=== PATIENT | female | born 1990 | race Caucasian/White ===

== ENCOUNTER → 2019-09-18 14:49 | Outpatient (BNVA) | payer OTHER, MEDICAID, SELFPAY | PROVIDERS: PCP Family Medicine; Visit Provider Nurse Practitioner Women's Health | DX: Z01.89 Encounter for other specified special examinations (principal) | CPT/HCPCS: 84315 ==

== ENCOUNTER → 2019-10-02 11:17 | Outpatient (BNVA) | payer OTHER, MEDICAID, SELFPAY | PROVIDERS: PCP Family Medicine; Referring Provider Obstetrics & Gynecology; Visit Provider Obstetrics & Gynecology | DX: O09.891 Supervision of other high risk pregnancies, first trimester (principal); O30.001 Twin pregnancy, unspecified number of placenta and unspecified number of amniotic sacs, first trimester | CPT/HCPCS: 76801; 76802; 82950 ==

== ENCOUNTER → 2019-10-26 14:54 | Outpatient (BNVA) | payer OTHER, MEDICAID, SELFPAY | PROVIDERS: PCP Family Medicine; Visit Provider Obstetrics & Gynecology | DX: O09.891 Supervision of other high risk pregnancies, first trimester (principal) | CPT/HCPCS: 84315 ==

== ENCOUNTER → 2019-11-19 08:09 | Outpatient (BNVA) | payer OTHER, MEDICAID, SELFPAY | PROVIDERS: PCP Family Medicine; Visit Provider Obstetrics & Gynecology | DX: O30.042 Twin pregnancy, dichorionic/diamniotic, second trimester (principal) | CPT/HCPCS: 76805; 76810 ==

== ENCOUNTER 2019-12-23 09:46 | Outpatient (CLI) | payer OTHER, MEDICAID, SELFPAY ==
[2019-12-23 09:56] VITALS: BMI 38.2
[2019-12-23 10:02] VITALS: BP 122/64; PULSE 105
[2019-12-23 10:14] VITALS: RESP 17; TEMP 36.7
[2019-12-23 10:45] LABS: Add Urine Culture? No; Bacteria Urine TRACE; Bilirubin Urine Neg (NEGATIVE); Blood Urine Neg (Negative); Glucose Urine UA Norm (Normal); Ketones Urine Negative (Negative); Leukocyte Esterase Urine Negative (Negative); Nitrate Urine Negative (Negative); Protein Urine Neg (Negative); Specific Gravity, Urine 1.005 (1.005-1.030); Squamous Epithelial Cell Urine 15-25 (0-5); Urine Appearance Clear (CLEAR); Urine Color Straw (Yellow); Urobilinogen Urine Norm (Negative); WBC Urine 0-4 /hpf (0-5); pH Urine 7 (5-7)
== END 2019-12-23 11:00 | disposition home or self-care (01) ==
LOC: OPOB 09:52 → OBGYN 09:53
PROVIDERS: PCP Family Medicine; Visit Provider Obstetrics & Gynecology
DX: O36.8190 Decreased fetal movements, unspecified trimester, not applicable or unspecified (principal); Z3A.00 Weeks of gestation of pregnancy not specified
CPT/HCPCS: 59025; 81001; 99211

== ENCOUNTER → 2020-01-15 09:59 | Outpatient (BNVA) | payer OTHER, MEDICAID, SELFPAY | PROVIDERS: PCP Family Medicine; Visit Provider Obstetrics & Gynecology | DX: O09.892 Supervision of other high risk pregnancies, second trimester (principal); O30.009 Twin pregnancy, unspecified number of placenta and unspecified number of amniotic sacs, unspecified trimester | CPT/HCPCS: 82950; 84315; 85027 ==

== ENCOUNTER → 2020-02-15 11:20 | Outpatient (BNVA) | payer OTHER, MEDICAID, SELFPAY | PROVIDERS: PCP Family Medicine; Visit Provider Obstetrics & Gynecology | DX: O12.03 Gestational edema, third trimester (principal); N89.8 Other specified noninflammatory disorders of vagina; O42.90 Premature rupture of membranes, unspecified as to length of time between rupture and onset of labor, unspecified weeks of gestation | CPT/HCPCS: 81000; 83986 ==

== ENCOUNTER → 2020-02-26 15:05 | Outpatient (BNVA) | payer OTHER, MEDICAID, SELFPAY | PROVIDERS: PCP Family Medicine; Visit Provider Obstetrics & Gynecology | DX: Z34.90 Encounter for supervision of normal pregnancy, unspecified, unspecified trimester (principal) | CPT/HCPCS: 76819; 84315 ==

== ENCOUNTER → 2020-02-29 16:00 | Outpatient (BNVA) | payer OTHER, MEDICAID, SELFPAY | PROVIDERS: PCP Family Medicine; Visit Provider Obstetrics & Gynecology | DX: O09.893 Supervision of other high risk pregnancies, third trimester (principal) | CPT/HCPCS: 76819; 84315 ==

== ENCOUNTER → 2020-03-04 08:11 | Outpatient (BNVA) | payer OTHER, MEDICAID, SELFPAY | PROVIDERS: PCP Family Medicine; Visit Provider Obstetrics & Gynecology | DX: O30.043 Twin pregnancy, dichorionic/diamniotic, third trimester (principal); Z3A.36 36 weeks gestation of pregnancy | CPT/HCPCS: 76819 ==

== ENCOUNTER → 2020-03-10 08:00 | Outpatient (BNVA) | payer MEDICAID, SELFPAY | PROVIDERS: PCP Family Medicine; Visit Provider Obstetrics & Gynecology | DX: O30.043 Twin pregnancy, dichorionic/diamniotic, third trimester (principal); O09.893 Supervision of other high risk pregnancies, third trimester | CPT/HCPCS: 84315; 87081 ==

== ENCOUNTER 2020-03-17 15:42 | Outpatient (CLI) | payer MEDICAID, SELFPAY ==
[2020-03-19 18:03] LABS: Coronavirus Lab Test PTC Positive
== END 2020-03-17 15:43 | disposition home or self-care (01) ==
LOC: OPOB 15:42
PROVIDERS: PCP Family Medicine; Visit Provider Obstetrics & Gynecology
DX: Z11.59 Encounter for screening for other viral diseases (principal)
CPT/HCPCS: 84315; 87635; 99211

== ENCOUNTER 2020-03-18 18:08 | Inpatient (IN) | payer MEDICAID, SELFPAY ==
[2020-03-18 18:25] VITALS: BP 139/72; PULSE 79
--- NOTE | 2020-03-18 18:30 | PC.NURSE ---
Bedside ultrasound completed to verify position, baby A vertex and baby B transverse lie.
[2020-03-18 20:16] LABS: Basophils % 0.3 %; Eosinophils # 0.1 10^3/uL (0.0-0.8); Eosinophils % 0.7 %; Hematocrit 33.3 % (37.0-47.0); Lymphocytes # 2.1 10^3/uL (0.8-4.8); Lymphocytes % 19.2 %; Mean Corpuscular Hemoglobin 28.4 pg (28.0-34.0); Mean Platelet Volume 13.2 fL (7.4-10.4); Monocytes # 0.9 10^3/uL (0.2-0.9); Monocytes % 8.5 %; Neutrophils # 7.49 10^3/uL (1.8-7.7); Neutrophils % 69.8 %; Nucleated Red Blood Cells % 0 %; Platelet Count 144 10^3/cmm (130-400); Red Blood Count 3.87 10^6/uL (4.1-5.3); Red Cell Distribution Width 16.6 % (12.1-15.1); White Blood Count 10.7 10^3/uL (4.0-10.0)
[2020-03-18] MEDS: miSOPROStol 100 mcg tablet 25 MCG VAGINAL (20:25)
[2020-03-18 20:38] LABS: Slide Review Slide Review Perform
[2020-03-18 20:45] VITALS: TEMP 36.5
[2020-03-18] MEDS: lactated ringers 1,000 ML 999 ML IV (23:59)
[2020-03-19] VITALS (139 sets, daily range): BP systolic 0–147; BP diastolic 0–91; PULSE 56–98; RESP 16–18; TEMP 36.3–36.9; O2SAT 98–100
--- NOTE | 2020-03-19 00:56 | ANES.PREANE2 ---
Pre-Anesthetic Assessment Pre-Anesthetic Assessment: Height/Weight: Height 1.7 m Weight 273 g Temp Pulse BP 97.7 F 79 139/72 03/18/20 20:45 03/18/20 18:25 03/18/20 18:25 Preop Diagnosis: labor pain Proposed Procedure: epidural Was Beta Antoinette taken within 24 hours: N/A Social: Social History: No alcohol and No tobacco Exam: Pre-Anes Outpt Exam: alert, oriented x 3, clear to auscultation bilaterally and regular rate & rhythm Airway: Submandibular: WNL Cervical ROM: WNL MP: 2 Dentition: Full Pulmonary: Pulmonary: None reported CV/HEM: CV/HEM: None reported : : None reported Hepatic: Hepatic: None reported GI: GI: None reported Metabolic: Metabolic: None reported Musc/skel: Musc/skel: None reported Neuropsych: Neuropsych: None reported Anesthetic Plan: ASA status: 2 Anesthesia: Eval. for regional block Risk of > 500 ml blood loss (7ml/kg in children): No Meds/Allergies Current Medications: Current Medications Generic Name Dose Route Start Last Admin Trade Name Freq PRN Reason Stop Dose Admin Lactated Ringer's 1,000 mls @ 999 m ls/hr 03/18/20 19:09 03/18/20 23:59 Lactated Ringers IV 999 mls/hr .Q1H1M PRN Administration BLEEDING Misoprostol 25 mcg 03/18/20 19:15 03/18/20 20:25 Cytotec VAGINAL 03/19/20 03:16 25 mcg Q4H ANALILIA Administration PFSH Anesthesia PFSH: Medical History No pertinent past medical history neghx:htn,dm,thyroid,dvt/pe,herpes Surgical History No pertinent past surgical history Family History Grandfather Cancer Maternal grandfather-colon cancer Family/Other Cancer Maternal aunt-colon cancer Social History (Updated 03/18/20 @ 16:31 by Arsenio Crisostomo MD) Smoking and tobacco status: former smoker Quit status (tobacco): has quit using tobacco Year quit tobacco: 2011 Alcohol intake: never Other details last substance use: Denies drug use. Female Reproductive History: : 3 Data Anesthesia CBC & Chem 7: 03/18/20 18:30 Other Labs: Laboratory Results - last 48 hr 03/18/20 18:30 WBC 10.7 H RBC 3.87 L Hgb 11.0 L Hct 33.3 L MCV 86.0 MCH 28.4 MCHC 33.0 RDW 16.6 H Plt Count 144 MPV 13.2 H Neut % (Auto) 69.8 Lymph % (Auto) 19.2 [place] % (Auto) 8.5 Eos % (Auto) 0.7 Baso % (Auto) 0.3 Neut # (Auto) 7.49 Lymph # (Auto) 2.1 [place] # (Auto) 0.9 Eos # (Auto) 0.1 Baso # (Auto) 0.0 Nucleated RBC % (auto) 0 Nucleated RBCs # 0.0 Cardiac Studies: No Data to Display
--- NOTE | 2020-03-19 01:21 | ANES.PROC ---
Anesthesia Procedures Procedure/Date: 03/19/20 epidural Procedure Narrative: epidural complete, bolus given, epidural pump initiated with SOLID GLASS ROD DOWEL MACHINE OPERATOR education given, vitals taken during procedure using OBIX system and satisfactory throughout, patient admits to decrease pain, report of procedure to OB RN Epidural: Time Out Performed: Yes Consents Signed: Procedure Consent Consent: requested by attending/covering physician, from patient, risks and benefits reviewed and patient agrees to proceed Lumbar Level: L3-L4 Epidural position: sitting Epidural procedure: sterile prep of area, 1% lidocaine to numb the area (3 mL), 18 g needle, negative for paresthesia passed, neg for paresthesia, test dose given, 1.5% xylocaine 1:200k epi (5 mL), 0.2% Ropivacaine bolus ml (5 mL), placed PCEA, no systemic response, sterile dressing applied, L.U.D. no apparent complications and 0.2% Ropiavacaine @ mls/hr (13 mL/hr)
[2020-03-19] MEDS: dextrose 5%-lactated ringers 1,000 ML 125 ML IV ×2 (03:24→17:03)
--- NOTE | 2020-03-19 08:33 | PC.NURSE ---
Adjusting pt in bed per pt requesting. Also performing pericare and changing chux pad.
[2020-03-19] MEDS: oxytocin 30 UNIT/500 ML BAG IV (10:55)
[2020-03-19] MEDS: lactated ringers 1,000 ML 999 ML IV (12:25)
--- NOTE | 2020-03-19 13:32 | PM.PN ---
Subjective Subjective: Interval history: 30-year-old female with term twin , Vertex/breech. Refers feeling okay Vitals/I&O/Wt Last Vital Signs Temp 98.5 F 03/19/20 09:30 Pulse 73 03/19/20 13:21 BP 118/61 03/19/20 13:21 Pulse Ox 100 03/19/20 13:06 03/18/20 03/19/20 03/19/20 22:59 06:59 14:59 Intake Total 2001.500 2001. Output Total 200 / 200 Balance -200 / -200 2001.500 2001.500 Weight last 48 hrs Weight 273 g Physical Exam Narrative: EXAM NARRATIVE: GA: Alert and oriented ?3. Lungs: Clear to auscultation bilaterally. Heart: Regular rhythm and rate. Abdomen: Gravid, fundal height Greater than dates, nontender. LABORATORY GENETICIST: SVE; dilation: 6 cm, effacement: 60 %, station: -4, presentation: Vertex/breech, membranes: Intact. Extremities: no edema, no cyanosis, no calves pain. heart tracing: Basal rate: Baby A: 130s bpm, Baby B 120's bpm, Variability: Moderate, Accelerations: Present, Decelerations: Baby A late decelerations, Baby B variable decelerations Contractions: Every 3-4 minutes. Urinary Catheter Management^: Rainey: Cath Placed During This Visit: yes Reason for Continuing Indwelling Catheter: Acute Urinary Retention or Obstruction Urinary Catheter Date of Insertion: 03/19/20 Urinary Catheter Time of Insertion: 01:45 Data : 03/18/20 18:30 A&P Additional A&P Information Call initially due to baby B variable decelerations and a prolonged deceleration, intrauterine was initiated and baby B seemed to recover. Now baby A had shown Repetitive late decelerations. The patient and her were counseled regarding findings and concern for well-being. Recommended primary delivery sense she is remote from delivery and heart tracing category 2 despite intrauterine resuscitation. The patient agreed. She stated she also had signed a consent for tubal ligation and wants to have a tubal ligation at the time we do the delivery. Instructed nursing personnel to prepare the patient for delivery and notify oncology nurse navigator information officer. delivery for nonreassuring status. Attestations Medical Necessity Statement*: In my professional opinion per admitting diagnosis Coding Level of Care Code Acute Porcelain Enameling Supervisor for Angela Nunez
--- NOTE | 2020-03-19 15:51 | P.OP_ITS ---
Operative Report Date of procedure: March 19, 2020 Pre-op Diagnosis: labor pain Post-op Diagnosis: Term twin , vertex/breech Nonreassuring status Post-op Findings: Baby A vertex, baby B transverse Procedure Done: Primary low-transverse delivery. Bilateral partial salpingectomy via modified [place] Specimens removed/disposition: Left and right fallopian tubes Surgeon: Ander fatima M.D. Anesthesia: Epidural Estimated blood loss (mL): 1,000 IV fluids (mL): 1,000 Urine output (mL): 200 Complications: None Condition: stable Disposition: PACU Procedure: After assuring informed consent, the patient was taken to the operating room and anesthesia was initiated. She was placed in the dorsal supine position with a left lateral tilt. The patient was given Ancef 2 gm intravenously immediately. The abdomen was prepped and draped in the usual sterile manner. A time-out procedure was performed. A Pfannenstiel skin incision was made with the scalpel and carried through to the underlying layer of fascia with the Bovie. The fascia was nicked in the midline and the incision extended laterally with the Quintero scissors. The superior aspect of the fascial incision was then grasped with Kosher clamps and elevated and the underlying rectus muscle dissected off bluntly and sharp with quintero scissors. Attention was then turned to the inferior aspect of the incision which, in similar fashion, was grasped and tented up with Kosher clamps and the rectus muscle dissected bluntly. The rectus muscles were then in the midline and the peritoneum identified, tented up and entered sharply with Metzenbaum scissors. The peritoneal incision was then extended superiorly and inferiorly with good visualization of the bladder. The bladder blade was then inserted and the vesicouterine peritoneum identified, grasped with pickups and entered sharply with Metzenbaum scissors. This incision was then extended laterally and the bladder flap created digitally. The bladder blade was then reinserted and the uterus incised in a low transverse fashion with the scalpel. The uterine incision was then extended with the bandage scissors. The bladder blade was removed and Baby A was then delivered in the cephalic presentation atraumatically. The nose and the mouth were suctioned with bulb and the cord clamped and cut and was handed over to awaiting porcelain buildup assistant and nursing personnel. Baby B was delivered in breech presentation atraumatically. The nose and the mouth were suctioned with bulb and the cord clamped and cut and was handed over to awaiting porcelain buildup assistant and nursing personnel. The cord was normal and had three vessels. Amniotic fluid was clear. The placentas were then removed manually and the uterus exteriorized and cleared of all clots and debris. The uterine incision was repaired with 0 Vicryl in a running-locked fashion. A second layer of the same suture was used to obtain excellent hemostasis. The gutters were cleared of all clots. The left fallopian tube was identified and grasped with a Sarah clamp. The tube was then followed out to the fimbria. An avascular midsection of the fallopian tube was grasped with a Morris clamp and brought into a knuckle. The tube was doubly ligated with an O-plain suture and transected. The specimen was sent to pathology. Excellent hemostasis was noted. The same procedure was performed on the opposite fallopian tube. The uterus was then returned to the abdomen. The rectus muscles were approximated with 3-0 chromic gut. The fascia was reapproximated with 0 Vicryl in an interrupted running fashion. The skin was closed with Insorb?s subcuticular absorbable aliyah. The incision was then infiltrated with Exparel for pain management. The patient tolerated the procedure well. The sponge, lap and needle counts were correct times three. .
[2020-03-19] MEDS: famotidine 20 mg/2 mL INJ IVP (17:12)
[2020-03-19] MEDS: metoclopramide 5 mg/mL SDV 2 mL 10 MG IVP (17:12)
[2020-03-19] MEDS: ketorolac 30 mg/mL INJ IVP (21:59)
[2020-03-20 00:40] VITALS: BP 120/74; PULSE 98; RESP 18; TEMP 36.4
[2020-03-20] MEDS: lactated ringers 1,000 ML 125 ML IV (01:05)
[2020-03-20 02:00] VITALS: BP 125/78; PULSE 71; RESP 18
[2020-03-20] MEDS: ketorolac 30 mg/mL INJ IVP (04:28)
[2020-03-20 04:45] LABS: Hemoglobin 8.7 g/dL (11.5-15.3); Mean Corpuscular HGB Conc 32.2 g/dL (30.0-36.0); Mean Corpuscular Volume 86.8 fL (81-99); Mean Platelet Volume 12.4 fL (7.4-10.4); Platelet Count 121 10^3/cmm (130-400); Red Blood Count 3.11 10^6/uL (4.1-5.3); Red Cell Distribution Width 16.8 % (12.1-15.1); White Blood Count 12.7 10^3/uL (4.0-10.0)
[2020-03-20 06:00] VITALS: BP 124/84; PULSE 91; RESP 18; TEMP 36.5
--- NOTE | 2020-03-20 09:44 | ANE.PACU2 ---
Inpatient post-anesthesia follow up: Airway intact: Yes Vital signs: Temperature 97.7 F Pulse Rate 91 Respiratory Rate 18 Blood Pressure 124/84 Pulse Oximetry 100 Oxygen Delivery Me thod Room Air Oxygen Flow Rate Fraction of Inspir ed Oxygen Hydration adequate: Yes Nausea and vomiting: No Pain level: 1 Mental status: Baseline Additional Comments: up and walking, no headache, urinating ok, no signs of infection at neuraxial site
[2020-03-20 10:00] VITALS: BP 122/78; PULSE 82; RESP 18; TEMP 36.4; O2SAT 97
[2020-03-20] MEDS: docusate sodium 100 mg Capsule PO ×2 (10:00→17:48)
[2020-03-20] MEDS: prenatal vitamin Capsule 1 CAP PO (10:00)
--- NOTE | 2020-03-20 15:44 | PM.PN ---
Subjective Subjective: Interval history: 29 year old, 3, Para 4-0-0-4 . Primary low-transverse delivery of twins at37+5 weeks Refers feeling fine and ambulating okay Vitals/I&O/Wt Last Vital Signs Temp 97.5 F L 03/21/20 06:28 Pulse 99 03/21/20 06:28 Resp 18 03/21/20 06:28 BP 133/77 03/21/20 06:28 Pulse Ox 97 03/21/20 06:28 03/20/20 03/21/20 03/21/20 22:59 06:59 14:59 Output Total 400 / 800 Balance -400 / -60.417 Physical Exam Narrative: EXAM NARRATIVE: GA: Alert and oriented ?3. HEENT: WNL. Breasts: engorged Nipples - skin intact Heart: Regular rate and rhythm. Lungs: Clear to auscultation bilaterally. Abdomen: Bowel sounds present, minimal tenderness, incision clean and dry, no redness, pain or edema. Uterine fundus below umbilicus. No Fundal Tenderness. PROPULSION SYSTEMS ENGINEER: Normal lochia Extremities: No edema, no cyanosis, no calves pain. Urinary Catheter Management^: Rainey: Cath Placed During This Visit: yes Reason for Continuing Indwelling Catheter: Accurate Measurement of Urinary Output in Critically Ill Patients Urinary Catheter Date of Insertion: 03/19/20 Urinary Catheter Time of Insertion: 01:45 Data : 03/20/20 04:30 A&P Additional A&P Information Patient is status post primary low-transverse delivery day 1. Afebrile and hemodynamically stable. Tolerating diet well. Ambulating without difficulty. Plan: Postop observation Attestations Medical Necessity Statement*: May professional opinion per admitting diagnosis Coding Level of Care Code Acute Rehabilitation Attendant for Angela Nunez
[2020-03-20 17:35] VITALS: BP 128/76; PULSE 78; RESP 16; TEMP 36.6
[2020-03-20] MEDS: ferrous sulfate EC 325 mg Tablet PO (20:39)
[2020-03-20 21:00] VITALS: BP 128/82; PULSE 89; RESP 18; TEMP 36.6; O2SAT 99
[2020-03-21 06:28] VITALS: BP 133/77; PULSE 99; RESP 18; TEMP 36.4; O2SAT 97
[2020-03-21] MEDS: prenatal vitamin Capsule 1 CAP PO (08:27)
[2020-03-21] MEDS: ferrous sulfate EC 325 mg Tablet PO (08:27)
[2020-03-21] MEDS: docusate sodium 100 mg Capsule PO (08:27)
[2020-03-21 10:00] VITALS: BP 118/78; PULSE 80; RESP 16; TEMP 36.6
[2020-03-21 11:35] VITALS: PULSE 89; RESP 18; O2SAT 99
--- NOTE | 2020-03-21 12:14 | PM.OBGYDC ---
Discharge Providers RECORD MAKER Date of Admission: 03/18/20 18:08 Date of Discharge: 03/21/20 Attending Provider at Admission: Ander Dixon MD Attending Provider at Discharge: Ander Dixon MD Primary Care Provider: Aryan Gore Jr, MD Diagnoses at Discharge Discharge Diagnosis (1) delivery delivered: Status: Acute Problem details: Status post Primary low-transverse delivery day 2 (2) , twin, delivered: Status: Acute Reason for Visit Reason for Visit: Brief History: 29 year old, 3, Para 4-0-0-4 With an EGA at 37+4 twin Vertex breech admitted for induction. Hospital Course Hospital Course: 29 year old, 3, Para 4-0-0-4 With an EGA at 37+4 twin Vertex breech admitted for induction. She progressed to a dilation of 6-7 cm when heart tracing for baby A started to show repetitive late decelerations. A Primary low-transverse delivery of twins Was performed due to nonreassuring status. The delivery was performed without complications. Postop observation was uneventful. She had been placed in isolation due to positive Covid test. She is asymptomatic. She is ambulating without difficulty. Tolerating diet well. Is afebrile and hemodynamically stable. Physical Exam Narrative: EXAM NARRATIVE: EXAM NARRATIVE: GA: Alert and oriented ?3. HEENT: WNL. Breasts: engorged Nipples - skin intact Heart: Regular rate and rhythm. Lungs: Clear to auscultation bilaterally. Abdomen: Bowel sounds present, minimal tenderness, incision clean and dry, no redness, pain or edema. Uterine fundus below umbilicus. No Fundal Tenderness. SOLICITING FREIGHT AGENT: Normal lochia Extremities: No edema, no cyanosis, no calves pain. Urinary Catheter Management^: Rainey: Cath Placed During This Visit: yes Reason for Continuing Indwelling Catheter: Accurate Measurement of Urinary Output in Critically Ill Patients Urinary Catheter Date of Insertion: 03/19/20 Urinary Catheter Time of Insertion: 01:45 Discharge Data Data Completed and Pending: Pending at discharge Category Date Time Status Pathology: Surgic al [PTH] Routine Pth 03/19/20 21:01 Ordered Vitals: Last Vital Signs Temp 97.9 F 03/21/20 10:00 Pulse 80 03/21/20 10:00 Resp 16 03/21/20 10:00 BP 118/78 03/21/20 10:00 Pulse Ox 97 03/21/20 06:28 Discharge Plan Discharge Patient Disposition: Home Condition: Stable Prescriptions: [place] 5-325 mg tablet 1 tab PO Q4H PRN (Reason: pain) Qty: 30 RF: 0 ibuprofen 800 mg tablet 800 mg PO TID PRN (Reason: pain) Qty: 60 RF: 0 acetaminophen 325 mg capsule 325 mg PO Q4H PRN (Reason: fever or pain) Qty: 60 RF: 0 ferrous sulfate 325 mg (65 mg iron) tablet 325 mg PO BID Qty: 60 RF: 0 Continued Gummies 400 mcg-35 mg- 25 mg-5 mg tablet,chewable 1 tab PO DAILY RF: 0 Discharge Orders: Discharge Order (Routine); Ordered 03/21/20 Ordered By: Ander Dixon Referrals: Ander Dixon MD [Physician] - 2 weeks Discharge Diet: As Directed Discharge Activity: Increase activity as tolerated Patient Instructions: Section (DC), Your Dexter's Appearance (GEN), Caring for Your Baby (GEN) Activity Restrictions/Additional Instructions: Pelvic rest for 6 weeks (no sex, no tampons, no vaginal douches). Return to the emergency room if any fever, increased bleeding or pain. Discharge Attestations RECORD MAKER Time Spent in Discharge Care*: greater than 30 min Specific Discharge Activities: Specific discharge activities: educating patient and educating and/or supporting family/caregiver Coding Level of Care Code Acute Sales Department Manager for Chg Fwd Diagnoses delivery delivered O82 , twin, delivered O30.009
[2020-03-21 13:50] VITALS: BP 128/82; PULSE 90; RESP 16; TEMP 36.7
== END 2020-03-21 14:15 | disposition home or self-care (01) | DRG 783 ==
PROVIDERS: Admitting Provider Obstetrics & Gynecology; PCP Family Medicine; Visit Provider Obstetrics & Gynecology
PROC: 10D00Z1 Extraction of Products of Conception, Low, Open Approach (ICD-10-PCS; CPT 59514; principal; 2020-03-19 14:00)
DX: O98.52 Other viral diseases complicating childbirth (principal); U07.1 COVID-19; Z3A.37 37 weeks gestation of pregnancy; Z37.2 Twins, both liveborn; O32.1XX0 Maternal care for breech presentation, not applicable or unspecified; O76 Abnormality in fetal heart rate and rhythm complicating labor and delivery; Z30.2 Encounter for sterilization
CPT/HCPCS: 12345; 36415; 51702; 58611; 59025; 59409; 85025; 85027; 88302; 88307; 96375; C9290; J0690; J1885; J2274; J2765; J2795; J3490; J7030

== ENCOUNTER → 2020-05-02 11:22 | Outpatient (BNVA) | payer MEDICAID, SELFPAY | PROVIDERS: PCP Family Medicine; Visit Provider Obstetrics & Gynecology | DX: O90.81 Anemia of the puerperium (principal) | CPT/HCPCS: 85027 ==

== ENCOUNTER → 2022-06-18 09:04 | Outpatient (BNVA) | payer MEDICAID, SELFPAY | PROVIDERS: PCP Family Medicine; Visit Provider Student in an Organized Health Care Education/Training Program | DX: G56.03 Carpal tunnel syndrome, bilateral upper limbs (principal); G56.23 Lesion of ulnar nerve, bilateral upper limbs | CPT/HCPCS: 73110 ==

== ENCOUNTER 2022-10-23 06:29 | Day surgery (SDC) | payer MEDICAID, SELFPAY ==
[2022-10-22 14:26] VITALS: BMI 41.9
[2022-10-23] VITALS (8 sets, daily range): BP systolic 120–164; BP diastolic 66–85; PULSE 79–92; RESP 15–17; TEMP 36.1–36.8; O2SAT 92–100
[2022-10-23] MEDS: acetaminophen 1,000 MG/100 ML PIGGYBACK 400 MG IV (07:05)
[2022-10-23] MEDS: sodium chloride 0.9% 1,000 ML 30 ML IV (07:05)
--- NOTE | 2022-10-23 07:07 | W.PM.OPSUD ---
Surgery/Procedure H&P Update DATE OF PROCEDURE: October 23, 2022 DATE H&P PERFORMED: 10/08/22 CHANGES TO PREVIOUS DOCUMENTATION: None PREOP DIAGNOSIS: Bilateral carpal tunnel syndrome PRIMARY INDICATION FOR PROCEDURE: Bilateral carpal tunnel syndrome PLANNED PROCEDURE: Operation Date: 10/23/22 08:15 Proposed Procedures p right and left carpal tunnel release:83282,G56.03(Bilateral) - Matthew Dunne DO
[2022-10-23 07:13] LABS: OR HCG Qualitative Urine Negative (Negative)
[2022-10-23] MEDS: ketorolac 30 mg/mL INJ IVP (07:21)
[2022-10-23] MEDS: scopolamine 1.5 Patch 1 PATCH TRANSDERMA (08:00)
[2022-10-23] MEDS: ceFAZolin 2,000 MG in sodium chloride 0.9% (plus) 50 ML 100 MG IV (08:08)
--- NOTE | 2022-10-23 08:37 | ANES.PREANE2 ---
Pre-Anesthetic Assessment Height/Weight: Height 1.68 m Weight 117.934 kg Temp Pulse Resp BP Pulse Ox O2 Del Method 97.1 F L 79 16 121/71 100 Room Air 10/23/22 06:47 10/23/22 06:47 10/23/22 06:47 10/23/22 06:47 10/23/22 06:47 10/23/22 06:53 Preop Diagnosis: Bilateral carpal tunnel syndrome Operation Date: 10/23/22 08:15 Proposed Procedures p right and left carpal tunnel release:54794,G56.03(Bilateral) - Matthew Dunne DO Familial anesthetic complications: none Was Beta Antoinette taken within 24 hours: N/A Was Clonidine taken within 24 hours: N/A Last intake: Intake Last Liquid Date 10/22/22 Last Liquid Time 21:00 Last Solid Date 10/22/22 Last Solid Time 21:00 Social No alcohol and No tobacco Exam alert, oriented x 3, clear to auscultation bilaterally and regular rate & rhythm Airway Submandibular: within normal limits Cervical ROM: within normal limits Mallampati: Class II Dentition: full Pulmonary None reported CV/HEM None reported Hepatic None reported GI None reported Metabolic Morbid Obesity [facility] [place] None reported Neuropsych Neuropathy (bilateral hands.) Anesthetic Plan ASA status: 1 Anesthesia: General Medications/Allergies Home Medications Medication Instructions Recorded Confirmed Last Taken Type cholecalciferol (vitamin D3) 50 50 mcg PO DAILY 09/05/22 10/23/22 10/08/22 History mcg (2,000 unit) capsule hydrocodone 5 mg-acetaminophen 325 1 tab PO Q6H PRN pain 5 days #20 10/23/22 Unknown Rx mg tablet tabs Allergies Allergy/AdvReac Type Severity Reaction Status Date / Time No Known Allergies Allergy Verified 10/23/22 06:46 Current Medications Generic Name Dose Route Start Last Admin Trade Name Freq PRN Reason Stop Dose Admin Sodium Chloride 1,000 mls @ 30 mls/hr 10/23/22 06:45 10/23/22 07:05 Sodium Chloride 0.9% IV 10/24/22 06:44 30 mls/hr .Q24H ANALILIA Administration PFSH Anesthesia Medical History No pertinent past medical history neghx:htn,dm,thyroid,dvt/pe,herpes Ulnar nerve neuropathy Surgical History S/P primary low transverse (03/19/20) With BTL. DX: Twin gestation. [place] [facility] [place] S/P tubal ligation (03/19/20) At time of . [place]. [place] [facility] [place] Family History Grandfather Cancer Maternal grandfather-colon cancer Family/Other Cancer Maternal aunt-colon cancer Social History Smoking and tobacco status: former smoker Quit status (tobacco): has quit using tobacco Year quit tobacco: 2011 Alcohol intake: never Other details last substance use: Denies drug use. Data Anesthesia Cardiac Studies: No Data to Display
[2022-10-23] MEDS: lidocaine-epi 1% 20 mL INJ INJECTION (08:45)
--- NOTE | 2022-10-23 09:23 | PM.OP2 ---
Brief Operative Note Date of procedure: 10/23/22 Pre-op diagnosis: Bilateral carpal tunnel syndrome Post-op diagnosis: same Procedure Done: Left carpal tunnel release Right carpal tunnel release Surgeon: Matthew Dunne Estimated blood loss (mL): 5 Complications: None Post-op Plan: Patient taken to PACU in stable condition recovering well. Patient receive appropriate discharge structure as well as pain medication postoperatively. Patient follow-up with me in the office in 2 weeks understands she has any questions or concerns should contact the office. All questions answered. Condition: stable Disposition: same day Coding Level of Care Code Acute Code for Angela Nunez
--- NOTE | 2022-10-23 09:24 | PM.PACU ---
PACU note Narrative: Patient taken to PACU in stable condition recovering well pain controlled. Dressings on in place clean dry and intact fingertips warm well-perfused brisk capillary refill less than 2 seconds. Able to wiggle fingers. She does have decreased sensation to the bilateral hands secondary to local anesthetic. Exam: awake Disposition: discharged
--- NOTE | 2022-10-23 09:25 | PM.OP ---
Operative Report Date of procedure: October 23, 2022 Pre-op diagnosis: Preop Diagnosis Bilateral carpal tunnel syndrome Procedure: Post-op diagnosis: Same Procedure done: Left carpal tunnel release Right carpal tunnel release Surgeon: Matthew Dunne DO Estimated blood loss: 5 mL Left upper extremity -13 minutes Right upper extremity?15 minutes Complications: None Findings: See operative report narrative Condition: stable Disposition: same day Brief History: Patient is a pleasant 32-year-old female with bilateral carpal tunnel syndrome confirmed with nerve conduction studies as well as physical exam findings.? We talked about her treatment options she has failed conservative treatment with bracing.? Talked about injections and surgical intervention.? Through shared decision making she like to proceed with bilateral carpal tunnel release surgery.? We talked about the risk benefits complication alternatives surgical treatment options.? Understanding risk of surgery she agrees to proceed with surgical intervention all questions answered.? Consent reviewed and signed with patient. Procedure: Patient seen and evaluated in the preoperative holding area.? Consent was reviewed and signed with patient.? Correct extremities were marked.? Patient was seen evaluated by the anesthesia department once cleared for surgery was brought back to the operative suite.? Placement was placed onto the OR table in supine position all bony prominences were well-padded patient properly secured to the bed.? Bilateral upper extremity was then placed onto an armboard.? A nonsterile tourniquet was applied to the left upper arm.? Patient underwent anesthesia per the anesthesia department.? Patient's bilateral upper extremity was then prepped and draped in standard orthopedic fashion.? Final timeout performed.? Patient received appropriate preoperative antibiotics. Under sterile aseptic technique patient received local anesthesia over the preplanned carpal tunnel incision sites bilaterally.? Esmarch was used to exsanguinate the right upper extremity and Esmarch tourniquet applied. A standard mini open carpal tunnel incision was made.? Starting distally at Hernandez's cardinal line in line with the fourth ray extending proximally distal to the wrist crease centered over the carpal tunnel.? Sharp scalpel incision was made through skin and subcutaneous tissue.? Self-retaining retractor was placed and the palmar fascia was identified.? This was then split longitudinally and direct visualization of the transverse carpal ligament was then made.? I then utilizing scalpel feathered through the transverse carpal ligament until I entered the floor of the transverse carpal tunnel ligament into the carpal tunnel.? Next I switched to dissection scissors and completed my release of the transverse carpal ligament distally with care to protect the recurrent motor branch.? I completely released into the palmar fat and until no entrapment was noted distally.? Care was made to protect the superficial palmar arch during my distal dissection.? Next I then placed a Ragland underneath the transverse carpal tunnel ligament to protect the contents of the carpal tunnel and subsequently utilizing dissection scissors under loupe magnification completely released the transverse carpal ligament proximally into the median antebrachial fascia.? Care was made to protect the palmar cutaneous branch by keeping my scissors curved ulnarly.? Once completely released, I then placed my Ragland and had appropriate decompression of the carpal tunnel proximally as well as distally.? I then inspected the contents of the carpal tunnel which showed an hourglass shape of the median nerve showing its compression.? Significant nerve irritation and inflammation noted. No masses were noted.? Tendons appeared healthy.? Wound was then thoroughly irrigated.? Tourniquet deflated.? Hemostasis satisfactory with bipolar electrocautery.? I then closed the incision with interrupted nylon stitches.? Xeroform 4 x 4's and a bulky soft dressing was applied to the right upper extremity.? Esmarch was used to exsanguinate the left upper extremity and tourniquet insufflated to 250 mmHg. A standard mini open carpal tunnel incision was made.? Starting distally at Hernandez's cardinal line in line with the fourth ray extending proximally distal to the wrist crease centered over the carpal tunnel.? Sharp scalpel incision was made through skin and subcutaneous tissue.? Self-retaining retractor was placed and the palmar fascia was identified.? This was then split longitudinally and direct visualization of the transverse carpal ligament was then made.? I then utilizing scalpel feathered through the transverse carpal ligament until I entered the floor of the transverse carpal tunnel ligament into the carpal tunnel.? Next I switched to dissection scissors and completed my release of the transverse carpal ligament distally with care to protect the recurrent motor branch.? I completely released into the palmar fat and until no entrapment was noted distally.? Care was made to protect the superficial palmar arch during my distal dissection.? Next I then placed a Ragland underneath the transverse carpal tunnel ligament to protect the contents of the carpal tunnel and subsequently utilizing dissection scissors under loupe magnification completely released the transverse carpal ligament proximally into the median antebrachial fascia.? Care was made to protect the palmar cutaneous branch by keeping my scissors curved ulnarly.? Once completely released, I then placed my Ragland and had appropriate decompression of the carpal tunnel proximally as well as distally.? I then inspected the contents of the carpal tunnel which showed an hourglass shape of the median nerve showing its compression.? Significant nerve irritation and inflammation noted. No masses were noted.? Tendons appeared healthy.? Wound was then thoroughly irrigated.? Tourniquet deflated.? Hemostasis satisfactory with bipolar electrocautery.? I then closed the incision with interrupted nylon stitches.? Xeroform 4 x 4's and a bulky soft dressing was applied to the left upper extremity.? Patient was then awakened from anesthesia and taken to PACU in stable condition.? Patient tolerated procedure without complications. Disposition: Patient taken to PACU in stable condition recovering well.? Dressing clean dry and intact.? Patient will receive appropriate discharge instructions as well as pain medication postoperatively.? Patient to follow-up with me in the office in 2 weeks.? They understand they may be weightbearing as tolerated to the bilateral hands.? Patient should keep incision clean dry and intact.? Patient understands if any questions or concerns he may contact the office.
--- NOTE | 2022-10-23 14:42 | ANE.PACU2 ---
Inpatient post-anesthesia follow up: Airway intact: Yes Vital signs: Temperature 97.4 F Pulse Rate 79 Respiratory Rate 17 Blood Pressure 142/81 Pulse Oximetry 97 Oxygen Delivery Me thod Room Air Oxygen Flow Rate Fraction of Inspir ed Oxygen Hydration adequate: Yes Nausea and vomiting: No Pain level: 2 Mental status: Baseline
== END 2022-10-23 10:32 | disposition home or self-care (01) ==
PROVIDERS: Anesthesiology; PCP Nurse Practitioner Family; Visit Provider Student in an Organized Health Care Education/Training Program
PROC: (CPT 64721; principal; 2022-10-23 08:05)
DX: G56.03 Carpal tunnel syndrome, bilateral upper limbs (principal); E66.01 Morbid (severe) obesity due to excess calories; Z68.41 Body mass index [BMI] 40.0-44.9, adult; Z87.891 Personal history of nicotine dependence
CPT/HCPCS: 64721; 81025; 84703; J0131; J0690; J1100; J1885; J2250; J2405; J2704; J2795; J3010; J7030